=== PATIENT | male | born 1945 | race Caucasian/White ===

== ENCOUNTER → 2016-09-11 | Outpatient (CLI) | payer MEDICARE | LOC: SP 14:10 | PROVIDERS: ATTEND Nurse Practitioner Family | DX: Z86.73 Personal history of transient ischemic attack (TIA), and cerebral infarction without residual deficits (principal) | CPT/HCPCS: 93880 ==

== ENCOUNTER 2019-09-30 16:42 | Emergency (ER) | payer MEDICARE ==
--- NOTE | 2019-09-30 16:59 | ER Document Report ---
ED General - General Chief Complaint: Bloody Stools Stated Complaint: BLOODY STOOLS Time Seen by Provider: 09/30/19 16:49 Primary Care Provider: RICK NICK NP [ALLIED HEALTH PROFESSIONAL] - Follow up as needed Notes: 73-year-old male presents with bright red blood per rectum and lightheadedness for about an hour. Heart rate 130 for EMS. Patient is not very well-informed about his history but does state he is had this happen before but is never had an endoscopy. He is seen primarily at [facility]. He denies blood thinner use but has a history of a TIA. No belly pain no chest pain or shortness of esdras ath. TRAVEL OUTSIDE OF THE [place] IN LAST 30 DAYS: No - Related Data Allergies/Adverse Reactions: No Known Allergies Allergy (Unverified 09/30/19 17:00) Past Medical History - Social History Smoking Status: Former Smoker Family History: None Review of Systems - Review of Systems Notes: REVIEW OF SYSTEMS GEN: Denies fever, chills, weight loss ENT: Denies sore throat, nasal discharge, ear pain EYES: Denies blurry vision, eye pain, discharge CV: Denies chest pain, palpitations, edema RESP: Denies cough, shortness of breath, wheezing GI: HPI. MSK: Denies joint pain/swelling, edema, SKIN: Denies rash, skin lesions LYMPH: Denies swollen glands/lymph nodes NEURO: C. Denies headache, focal weakness or numbness, dizziness PSYCH: Denies depression, suicidal or homicidal ideation PHYSICAL EXAMINATION General: No acute distress, well-nourished Head: Atraumatic, normocephalic ENT: Mouth normal, oropharynx moist, no exudates or tonsillar enlargement Eyes: Conjunctiva normal, pupils equal, lids normal Neck: No JVD, supple, no guarding CVS: Normal rate, regular rhythm, no murmurs Resp: No resp distress, equal and normal breath sounds bilaterally GI: WMaroon nd blood with clots present in the patient's underwear Back: No CVA or midline TTP Skin: No rash, warm Lymphatic: No lymphadeopathy noted Neuro: Awake, alert. Face symmetric. GCS 15. Physical Exam - Vital signs Vitals: Temp 97.5 F 09/30/19 16:51 Course - Re-evaluation Re-evalutation: 09/30/19 16:58 GI bleed with tachycardia, no hypotension at this time altered mental status, but will watch carefully. Likely lower GI bleed with maroon stool but will keep an eye out for brisk upper GI bleed. 2 IVs will be placed, he will have type and screen sent CBC, etc. 09/30/19 18:40 Interestingly the patient's hemoglobin is normal but he remains tachycardic. He had one additional maroon stool in the ED. His apparently told the nurse he has been having some abdominal bloating. Given his history of diverticulitis we will do a CT rule out infectious etiology of the tachycardia but he does not have a fever or other sepsis criteria with normal white count. He will be given 1 L of fluid to start. He has a type and cross pending. Contacted [facility] as of 6:40 PM transfer 09/30/19 19:[address] to [address] became diaphoretic and passed a large maroon stool. I put him back in the room canceled his CT scan and started transfusing him blood at approximately 7:10 PM. I have canceled the transfer to [facility] because they have not called me back and will resume transfer with [place] for GI. Now that he is bleeding I am reassured that the tachycardia is not thought from this and that he is likely not septic. 09/30/19 19:34 Discussed with family. In agreement. Accepted by Dr. Cruz at [facility]. Discussed with filing. Trucks on the way. Is getting blood heart rate is 100. - Vital Signs Vital signs: Temp Pulse Resp BP Pulse Ox 97.4 F 105 H 21 H 119/85 95 09/30/19 19:30 09/30/19 19:30 09/30/19 19:30 09/30/19 19:30 09/30/19 19:30 - Laboratory Result Diagrams: 09/30/19 17:10 09/30/19 17:10 Laboratory results interpreted by me: 09/30/19 09/30/19 09/30/19 17:10 17:10 17:10 RDW 14.8 H Plt Count 147 L Potassium 3.4 L Glucose 129 H Calcium 8.3 L Crossmatch See Detail - Diagnostic Test Radiology reviewed: Image reviewed, Reports reviewed Critical Care Note - Critical Care Note Total time excluding time spent on procedures (mins): 35 Comments: The above patient is critically ill. Not including procedures, but including direct re-evaluations, speaking with patient and/or consultants, interpreting results, and documenting, I spent the total amount of minute listed listed above on critical care time Discharge - Discharge Clinical Impression: Lower GI bleeding Condition: Good Disposition: [facility] Referrals: RICK NICK, LAMINATING MACHINE OFFBEARER [ALLIED HEALTH PROFESSIONAL] - Follow up as needed
[2019-09-30 17:42] LABS: ABSOLUTE EOSINOPHILS # (AUTO) 0.1 10^3/uL (0.0-0.6); ABSOLUTE MONOCYTES (AUTO) 0.6 10^3/uL (0.1-1.4); ABSOLUTE NEUT (AUTO) 6.1 10^3/uL (1.7-8.2); BASOPHILS % (AUTO) 0.4 % (0-2); EOSINOPHILS % (AUTO) 1.5 % (0-6); HEMATOCRIT 42.1 % (37.9-51.0); HEMOGLOBIN 14.5 g/dL (13.5-17.0); LYMPHOCYTES % (AUTO) 22.4 % (13-45); MEAN CORPUSCULAR HEMOGLOBIN 31.6 pg (27.0-33.4); MEAN CORPUSCULAR HGB CONC 34.4 g/dL (32.0-36.0); MEAN CORPUSCULAR VOLUME 92 fl (80-97); PLATELET COUNT 147 10^3/uL (150-450); RED BLOOD COUNT 4.58 10^6/uL (4.35-5.55); RED CELL DISTRIBUTION WIDTH 14.8 % (11.5-14.0); SEGMENTED NEUTROPHILS % (AUTO) 68.7 % (42-78); TOTAL CELLS COUNTED % (AUTO) 100 %; WHITE BLOOD COUNT 8.9 10^3/uL (4.0-10.5)
[2019-09-30 17:54] LABS: INTERNATIONAL RATION (INR) 1.01; PROTHROMBIN TIME 13.3 SEC (11.4-15.4)
[2019-09-30] MEDS ORDERED: NORMAL SALINE 1000 ML 1,000 ML IV ONE (17:56)
[2019-09-30 18:02] LABS: ANION GAP 8 (5-19); BLOOD UREA NITROGEN 15 mg/dL (7-20); CALCIUM 8.3 mg/dL (8.4-10.2); CARBON DIOXIDE 27 mmol/L (22-30); CHLORIDE 104 mmol/L (98-107); GLUCOSE 129 mg/dL (75-110); POTASSIUM 3.4 mmol/L (3.6-5.0)
[2019-09-30] MEDS ORDERED: NORMAL SALINE 250 ML IV PRN ×2 (18:52→19:54)
[2019-09-30 19:54] LABS: ABSOLUTE EOSINOPHILS # (AUTO) 0.1 10^3/uL (0.0-0.6); ABSOLUTE LYMPHOCYTES (AUTO) 1.8 10^3/uL (0.5-4.7); ABSOLUTE MONOCYTES (AUTO) 0.8 10^3/uL (0.1-1.4); ABSOLUTE NEUT (AUTO) 8.6 10^3/uL (1.7-8.2); BASOPHILS % (AUTO) 0.3 % (0-2); EOSINOPHILS % (AUTO) 1.1 % (0-6); HEMATOCRIT 36.2 % (37.9-51.0); HEMOGLOBIN 12.6 g/dL (13.5-17.0); LYMPHOCYTES % (AUTO) 16.3 % (13-45); MEAN CORPUSCULAR HGB CONC 34.9 g/dL (32.0-36.0); MEAN CORPUSCULAR VOLUME 92 fl (80-97); MONOCYTES % (AUTO) 6.7 % (3-13); PLATELET COUNT 137 10^3/uL (150-450); RED BLOOD COUNT 3.95 10^6/uL (4.35-5.55); RED CELL DISTRIBUTION WIDTH 14.8 % (11.5-14.0); SEGMENTED NEUTROPHILS % (AUTO) 75.6 % (42-78); TOTAL CELLS COUNTED % (AUTO) 100 %; WHITE BLOOD COUNT 11.3 10^3/uL (4.0-10.5)
--- NOTE | 2019-09-30 21:02 | EKG REPORT ---
SEVERITY:- OTHERWISE NORMAL ECG - SINUS TACHYCARDIA : Confirmed by: Arely Restrepo MD 30-Sep-2019 21:00:49
[2019-09-30 21:06] VITALS: BP 129/79
== END 2019-09-30 21:30 | disposition short-term general hospital (02) ==
LOC: ER 16:42
DX: K92.2 Gastrointestinal hemorrhage, unspecified (principal); R19.5 Other fecal abnormalities; R42 Dizziness and giddiness; R00.0 Tachycardia, unspecified; R41.82 Altered mental status, unspecified; Z87.891 Personal history of nicotine dependence
CPT/HCPCS: 93005; 99291; 96360; 86900; 86901; 36415; 36430; 86850; 85025; 85610; 80048; 86920; 93010; P9016; J7030

== ENCOUNTER 2020-04-24 14:23 | Inpatient (IN) | payer MEDICARE ==
[2020-04-24 14:50] LABS: ABSOLUTE LYMPHOCYTES (AUTO) 1.4 10^3/uL (0.5-4.7); ABSOLUTE MONOCYTES (AUTO) 0.5 10^3/uL (0.1-1.4); ABSOLUTE NEUT (AUTO) 6.7 10^3/uL (1.7-8.2); BASOPHILS % (AUTO) 0.3 % (0-2); EOSINOPHILS % (AUTO) 0.3 % (0-6); HEMOGLOBIN 15.1 g/dL (13.5-17.0); LYMPHOCYTES % (AUTO) 15.9 % (13-45); MEAN CORPUSCULAR HEMOGLOBIN 30.6 pg (27.0-33.4); MEAN CORPUSCULAR HGB CONC 34.3 g/dL (32.0-36.0); MEAN CORPUSCULAR VOLUME 89 fl (80-97); MONOCYTES % (AUTO) 6.2 % (3-13); PLATELET COUNT 141 10^3/uL (150-450); RED BLOOD COUNT 4.94 10^6/uL (4.35-5.55); RED CELL DISTRIBUTION WIDTH 15.6 % (11.5-14.0); SEGMENTED NEUTROPHILS % (AUTO) 77.3 % (42-78); TOTAL CELLS COUNTED % (AUTO) 100 %; WHITE BLOOD COUNT 8.6 10^3/uL (4.0-10.5)
[2020-04-24 15:10] LABS: ALBUMIN 3.4 g/dL (3.5-5.0); ALKALINE PHOSPHATASE 87 U/L (38-126); ANION GAP 9 (5-19); ASPARTATE AMINO TRANSFERASE 81 U/L (17-59); BILIRUBIN,DIRECT 0.6 mg/dL (0.0-0.4); BILIRUBIN,TOTAL 2.3 mg/dL (0.2-1.3); BLOOD UREA NITROGEN 41 mg/dL (7-20); CALCIUM 8.8 mg/dL (8.4-10.2); CARBON DIOXIDE 29 mmol/L (22-30); CHLORIDE 102 mmol/L (98-107); GLUCOSE 120 mg/dL (75-110); POTASSIUM 3.9 mmol/L (3.6-5.0); TOTAL PROTEIN 6.3 g/dL (6.3-8.2)
--- NOTE | 2020-04-24 15:10 | RADIOLOGY REPORT (SQ) ---
EXAM DESCRIPTION: CHEST SINGLE VIEW IMAGES COMPLETED DATE/TIME: 04/24/2020 3:01 pm REASON FOR STUDY: DIFFICULTY BREATHING COMPARISON: 2009 EXAM PARAMETERS: NUMBER OF VIEWS: One view. TECHNIQUE: Single frontal radiographic view of the chest acquired. RADIATION DOSE: NA LIMITATIONS: None. FINDINGS: LUNGS AND PLEURA: There appear to be extensive peripheral ground-glass infiltrates bilater ally. MEDIASTINUM AND HILAR STRUCTURES: No masses. Contour normal. HEART AND VASCULAR STRUCTURES: Heart normal in size. Normal vasculature. BONES: No acute findings. HARDWARE: None in the chest. OTHER: No other significant finding. IMPRESSION: Extensive ground-glass infiltrates bilaterally. May suggest an atypical infectious/ inf lammatory process such as COVID-19 pneumonia. TECHNICAL DOCUMENTATION: JOB ID: [id number] 2010 [employer]- All Rights Reserved Reading location - IP/workstation name: [email or web address]
[2020-04-24] MEDS ORDERED: METHYLPREDNISOLONE INJ 125 MG/2 ML SDV IV ONE (17:06)
--- NOTE | 2020-04-24 17:25 | ER Document Report ---
ED General - General Chief Complaint: Shortness Of Breath Stated Complaint: DIFFICULTY BREATHING Time Seen by Provider: 04/24/20 15:46 Mode of Arrival: Medic Information source: Patient, Emergency Med Personnel TRAVEL OUTSIDE OF THE U.S. IN LAST 30 DAYS: No - HPI Notes: Patient is brought in by ambulance for shortness of breath. Patient has a history of a positive Covid test on April 18, 2020. He states for approximately 8 to 10 days he has had decreased taste and smell. He has had cough and shortness of breath. With some generalized malaise as well. Patient states he does have a history of COPD. He denies being on home oxygen but states he does use CPAP occasionally. He denies any pain. His shortness of breath has been constant and moderate to severe. It is worse with exertion and better with rest. EMS states that they found the patient with a pulse ox of 60% on room air. - Related Data Allergies/Adverse Reactions: No Known Allergies Allergy (Verified 04/24/20 14:37) Past Medical History - General Information source: Patient - Social History Smoking Status: Former Smoker Frequency of alcohol use: None Drug Abuse: None Family History: None Patient has homicidal ideation: No - Past Medical History Cardiac Medical History: Reports: Hx Hypercholesterolemia, Hx Hypertension Review of Systems - Review of Systems Constitutional: Malaise, Weakness Cardiovascular: denies: Chest pain, Palpitations Respiratory: Cough, Short of breath -: Yes All other systems reviewed and negative Physical Exam - Vital signs Vitals: Pulse Ox 91 L 04/24/20 14:26 Interpretation: Tachycardic, Hypoxic - General General appearance: Alert - HEENT Head: Normocephalic, Atraumatic Eyes: Normal Pupils: PERRL - Respiratory Respiratory status: Respiratory distress - Mild, Tachypnea Chest status: Nontender Breath sounds: Decreased air movement, Rhonchi Chest palpation: Normal - Cardiovascular Rhythm: Tachycardia Heart sounds: Normal auscultation Murmur: No - Abdominal Inspection: Normal Distension: No distension Bowel sounds: Normal Tenderness: Nontender Organomegaly: No organomegaly - Back Back: Normal, Nontender - Extremities General upper extremity: Normal inspection, Nontender, Normal color, Normal ROM, Normal temperature General lower extremity: Normal inspection, Nontender, Normal color, Normal ROM, Normal temperature, Normal weight bearing. No: Kath's sign - Neurological Neuro grossly intact: Yes Cognition: Normal Orientation: AAOx4 [place] Coma Scale Eye Opening: Spontaneous [place] Coma Scale Verbal: Oriented [place] Coma Scale Motor: Obeys Commands [place] Coma Scale Total: 15 Speech: Normal Motor strength normal: LUE, RUE, LLE, RLE Sensory: Normal - Psychological Associated symptoms: Normal affect, Normal mood - Skin Skin Temperature: Warm Skin Moisture: Dry Skin Color: Normal Course - Re-evaluation Re-evalutation: 04/24/20 17:23 Patient presents with a known history of being positive for Covid approximate 6 days ago. His chest x-ray shows bilateral infiltrates consistent with a Covid pneumonia. Patient is hypoxic on room air and is not currently on home oxygen. On 6 L she was still approximate 89 to 90%. At this time he will be changed to high flow nasal cannula. Patient otherwise has been stable. - Vital Signs Vital signs: Temp Pulse Resp BP Pulse Ox 35 H 141/81 H 94 04/24/20 15:01 04/24/20 15:00 04/24/20 15:01 - Laboratory Results Result Diagrams: 04/24/20 14:24 04/24/20 14:24 Laboratory Results Interpreted: 04/24/20 04/24/20 04/24/20 14:24 14:24 14:24 RDW 15.6 H Plt Count 141 L Fibrinogen 515 H BUN 41 H Creatinine 1.38 H Est GFR (MDRD) Non-Af 51 L Glucose 120 H Total Bilirubin 2.3 H Direct Bilirubin 0.6 H AST 81 H Albumin 3.4 L Critical Laboratory Results Reviewed: Yes Attending or Supervising Physician who Reviewed Labs: ROYAL BHAGAT - Radiology Results Critical Radiology Results Reviewed: Yes Attending or Supervising Physician who Reviewed Radiology: ROYAL BHAGAT - EKG Interpretation by [facility] EKG shows normal: Sinus rhythm Rate: Tachycardia - 115 Rhythm: NSR [place]/QRS: Left axis deviation. No: Right axis deviation Critical Care Note - Critical Care Note Total time excluding time spent on procedures (mins): 50 Comments: Approximate 50 minutes of critical care time were spent on this hypoxic patient with Covid pneumonia. This was spent doing multiple reassessments. It was spent talking with information systems consultant. It was spent reviewing imaging and laboratory values. Discharge - Discharge Clinical Impression: Pneumonia due to COVID-19 virus, Hypoxia Condition: Critical Disposition: ADMITTED INPATIENT Admitting Provider: Kristen (Hospitalist) Unit Admitted: [facility]
[2020-04-24] MEDS ORDERED: ALBUTEROL SULFATE HFA (90 MCG/PUFF) 8 GM MDI IH PRN (17:47)
[2020-04-24] MEDS ORDERED: ACETAMINOPHEN 325 MG TABLET PO PRN (17:51)
[2020-04-24] MEDS ORDERED: ONDANSETRON HCL INJ/PF 4 MG/2 ML SDV IV PRN (17:51)
--- NOTE | 2020-04-24 18:09 | PDOC H&P ---
History of Present Illness Admission Date/PCP: 04/24/20 17:30 History of Present Illness: RUFINA QUICK is a 74 year old male with a history of coronary artery disease, COPD, pulmonary fibrosis, and hypertension who presents with shortness of breath. He has been sick now for close to 2 weeks. He said he started getting a feeling of general malaise and fatigue and a little bit of a cough which went on for several days, so he went to his primary care provider's office in [place] and got tested. His test was positive. His doctor called him back and told him that his test was positive and called in some prednisone to his pharmacy. He has been on that for 5 or 6 days now. He has gotten progressively worse and his called EMS. When they got to him, they said that his SPO2 on room air was in the 60s. They put him on oxygen, gave him some IV fluids, and an albuterol nebulizer treatment. In the ER they put him on a heated high flow nasal cannula, currently at 50 L of flow and 100% FiO2. Saturations currently in the mid 90s. He was tachypneic. He had patchy opacities on chest imaging. He says he has not run a fever with any of this. His cough has not been pro ductive. Past Medical History Cardiac Medical History: Reports: Hyperlipidema, Hypertension Social History Smoking Status: Former Smoker Family History Family History: None Parental Family History Reviewed: No - None known Children Family History Reviewed: No - None known Sibling(s) Family History Reviewed.: No - None known Medication/Allergy Home Medications: Amitriptyline HCl [Elavil 25 mg Tablet] 25 mg PO QHS 09/30/19 Aspirin [Ecotrin] 1 tab PO DAILY 09/30/19 Atenolol [Tenormin 50 mg Tablet] 50 mg PO DAILY 09/30/19 Atorvastatin Calcium [Lipitor] 80 mg PO QPM 09/30/19 Benzonatate [Tessalon Perles 100 mg Capsule] 100 mg PO QID 09/30/19 Isosorbide Mononitrate [Imdur 30 mg Tablet.er] 30 mg PO DAILY 09/30/19 Losartan Potassium [Cozaar 25 mg Tablet] 25 mg PO DAILY 09/30/19 Montelukast Sodium 10 mg PO QHS 09/30/19 Omeprazole 20 mg PO DAILY 09/30/19 Prednisone 1 tab PO ASDIR 09/30/19 Tamsulosin HCl [Flomax 0.4 mg Cap.sr] 0.4 mg PO DAILY 09/30/19 Allergies/Adverse Reactions: No Known Allergies Allergy (Verified 04/24/20 14:37) Review of Systems All systems: reviewed and no additional remarkable complaints except as stated - All systems were reviewed and were negative except as noted in the HPI Physical Exam Vital Signs: Temp Pulse Resp BP Pulse Ox 98.7 F 36 H 140/79 H 98 04/24/20 17:01 04/24/20 17:30 04/24/20 17:00 04/24/20 17:30 Intake & Output 04/23/20 04/24/20 04/25/20 06:59 06:59 06:59 Weight 80 kg Results Laboratory Results: 04/24/20 14:24 04/24/20 14:24 04/24/20 04/24/20 14:24 14:24 WBC 8.6 RBC 4.94 Hgb 15.1 Hct 44.0 MCV 89 MCH 30.6 MCHC 34.3 RDW 15.6 H Plt Count 141 L Seg Neutrophils % 77.3 Sodium 140.4 Potassium 3.9 Chloride 102 Carbon Dioxide 29 Anion Gap 9 BUN 41 H Creatinine 1.38 H Est GFR ( Amer) > 60 Glucose 120 H Calcium 8.8 Total Bilirubin 2.3 H AST 81 H Alkaline Phosphatase 87 Total Protein 6.3 Albumin 3.4 L Impressions: Chest X-Ray 04/24/20 14:26 IMPRESSION: Extensive ground-glass infiltrates bilaterally. May suggest an atypical infectious/ inflammatory process such as COVID-19 pneumonia. Assessment and Plan - Diagnosis (1) Pneumonia due to COVID-19 virus Is this a current diagnosis for this admission?: Yes (2) Acute hypoxemic respiratory failure Is this a current diagnosis for this admission?: Yes (3) COPD (chronic obstructive pulmonary disease) Qualifiers: COPD type: chronic bronchitis Chronic bronchitis type: mixed simple and mucopurulent Qualified Code(s): J41.8 - Mixed simple and mucopurulent chronic bronchitis Is this a current diagnosis for this admission?: Yes (4) Pulmonary fibrosis Is this a current diagnosis for this admission?: Yes (5) Coronary artery disease Qualifiers: Coronary Disease-Associated Artery/Lesion type: [place] artery [place] vs. transplanted heart: [place] heart Associated angina: without angina Qualified Code(s): I25.10 - Atherosclerotic heart disease of [place] coronary artery without angina pectoris Is this a current diagnosis for this admission?: Yes (6) Hypertension Qualifiers: Hypertension type: essential hypertension Qualified Code(s): I10 - Essential (primary) hypertension Is this a current diagnosis for this admission?: Yes (7) BPH (benign prostatic hyperplasia) Qualifiers: Lower urinary tract symptom presence: symptoms absent Qualified Code(s): N40.0 - Benign prostatic hyperplasia without lower urinary tract symptoms Is this a current diagnosis for this admission?: Yes - Plan Summary Summary: Were going to give him some IV Solu-Medrol, p.o. ivermectin, melatonin, zinc, IV doxycycline, B vitamin complex, vitamin C, and vitamin D3. Continue supplemental O2 on heated high flow nasal cannula, will titrate delivery method as needed to maintain SPO2 90 to 94%. D-dimer is pending, if it is greater than 1 we will start therapeutic anticoagulation with Lovenox. In the meantime, we will put him on 60 mg of subcutaneous Lovenox for prophylaxis. His ferritin and CRP are pending. We will follow the trend in these inflammatory markers to help us gauge his progress, also along with his clinical status. We will continue most of his home blood pressure medications. We will continue his statin. IV Pepcid for GI prophylaxis. - Time Time Spent with patient: 35 or more minutes Anticipated Discharge Disposition: Unknown Anticipated Discharge Timeframe: Unknown - Inpatient Certification Based on my medical assessment, after consideration of the patient's comorbidities, presenting symptoms, or acuity I expect that the services needed warrant INPATIENT care.: Yes I certify that my determination is in accordance with my understanding of Medicare's requirements for reasonable and necessary INPATIENT services [42 CFR 412.3e].: Yes Medical Necessity: Failure to Improve With Outpatient Therapy, Significant Comorbidiites Make Outpatient Treatment Too Risky, Need Close Monitoring Due to Risk of Patient Decompensation, Need For IV Fluids, Need For Continuous Telemetry Monitoring, Need for Nebulizer Therapy and Monitoring of Response, Need for IV Antibiotics, Risk of Complication if Not Cared For in Hospital
[2020-04-24] MEDS: VITAMIN B COMPLEX TABLET PO SCH (18:12)
[2020-04-24] MEDS: ASCORBIC ACID 500 MG TABLET PO SCH ×2 (18:12→23:41)
[2020-04-24] MEDS: ZINC SULFATE 220 MG CAPSULE PO SCH (18:13)
[2020-04-24] MEDS: CHOLECALCIFEROL (D3) 1,000 UNIT (25 MCG) TABLET PO SCH (18:13)
[2020-04-24] MEDS ORDERED: ENOXAPARIN SODIUM INJ 60 MG/0.6 ML DISP.SYRIN SUBCUT SCH (18:30)
[2020-04-24] MEDS ORDERED: IVERMECTIN 3 MG TABLET PO ONE (19:00)
--- NOTE | 2020-04-24 19:13 | EKG REPORT ---
SEVERITY:- OTHERWISE NORMAL ECG - SINUS TACHYCARDIA : Confirmed by: Arely Restrepo MD 24-Apr-2020 19:13:15
[2020-04-24] MEDS ORDERED: DOXYCYCLINE HYCLATE INJ 100 MG VIAL ONE (22:35)
[2020-04-24] MEDS: MELATONIN 5 MG TABLET PO SCH (22:50)
[2020-04-24] MEDS: ENOXAPARIN SODIUM INJ 60 MG/0.6 ML DISP.SYRIN SUBCUT SCH (22:50)
[2020-04-24 22:54] LABS: APPEARANCE,URINE SLIGHTLY-CLOUDY; BILIRUBIN,URINE NEGATIVE (NEGATIVE); COLOR,URINE AMBER; GLUCOSE, URINE 50 mg/dL (NEGATIVE); KETONES,URINE TRACE mg/dL (NEGATIVE); LEUKOCYTE ESTERASE,URINE TRACE (NEGATIVE); NITRITE,URINE NEGATIVE (NEGATIVE); PROTEIN,URINE 100 mg/dL (NEGATIVE); URINE SPECIFIC GRAVITY 1.026
[2020-04-24] MEDS: METHYLPREDNISOLONE INJ 40 MG/1 ML SDV IV SCH (23:11)
[2020-04-24] MEDS: FAMOTIDINE INJ/PF 20 MG/2 ML SDV IV SCH (23:11)
[2020-04-24] MEDS: RINGERS SOLUTION,LACTATED 1,000 ML IV PRN (23:13)
[2020-04-24] MEDS: DOXYCYCLINE HYCLATE 100 MG in DEXTROSE 5%-WATER 250 ML IV SCH (23:16)
[2020-04-25] MEDS: ASCORBIC ACID 500 MG TABLET PO SCH ×3 (05:35→17:24)
[2020-04-25 05:54] LABS: ABSOLUTE LYMPHOCYTES (AUTO) 0.3 10^3/uL (0.5-4.7); ABSOLUTE MONOCYTES (AUTO) 0.3 10^3/uL (0.1-1.4); ABSOLUTE NEUT (AUTO) 4.1 10^3/uL (1.7-8.2); LYMPHOCYTES % (AUTO) 6.4 % (13-45); MEAN CORPUSCULAR HEMOGLOBIN 30.1 pg (27.0-33.4); MEAN CORPUSCULAR HGB CONC 34.2 g/dL (32.0-36.0); MEAN CORPUSCULAR VOLUME 88 fl (80-97); MONOCYTES % (AUTO) 7.2 % (3-13); PLATELET COUNT 120 10^3/uL (150-450); RED BLOOD COUNT 4.66 10^6/uL (4.35-5.55); RED CELL DISTRIBUTION WIDTH 15.6 % (11.5-14.0); SEGMENTED NEUTROPHILS % (AUTO) 86.4 % (42-78); TOTAL CELLS COUNTED % (AUTO) 100 %; WHITE BLOOD COUNT 4.7 10^3/uL (4.0-10.5)
[2020-04-25 06:24] LABS: ALKALINE PHOSPHATASE 77 U/L (38-126); ANION GAP 8 (5-19); ASPARTATE AMINO TRANSFERASE 68 U/L (17-59); BILIRUBIN,DIRECT 0.7 mg/dL (0.0-0.4); BILIRUBIN,TOTAL 1.7 mg/dL (0.2-1.3); BLOOD UREA NITROGEN 37 mg/dL (7-20); CALCIUM 8.6 mg/dL (8.4-10.2); CARBON DIOXIDE 26 mmol/L (22-30); CHLORIDE 105 mmol/L (98-107); GLUCOSE 167 mg/dL (75-110); POTASSIUM 3.9 mmol/L (3.6-5.0); TOTAL PROTEIN 5.7 g/dL (6.3-8.2)
[2020-04-25 07:55] LABS: C-REACTIVE PROTEIN 155.2 mg/L (<10.0)
[2020-04-25] MEDS ORDERED: INFLUENZA QUAD (6MOS+) 2020-21 VAC 0.5 ML SYR IM ONE (08:00)
[2020-04-25] MEDS: VITAMIN B COMPLEX TABLET PO SCH (11:00)
[2020-04-25] MEDS: DOXYCYCLINE HYCLATE 100 MG in DEXTROSE 5%-WATER 250 ML IV SCH ×2 (11:00→21:59)
[2020-04-25] MEDS: ZINC SULFATE 220 MG CAPSULE PO SCH (11:00)
[2020-04-25] MEDS: METHYLPREDNISOLONE INJ 40 MG/1 ML SDV IV SCH ×2 (11:00→21:58)
[2020-04-25] MEDS: CHOLECALCIFEROL (D3) 1,000 UNIT (25 MCG) TABLET PO SCH (11:00)
[2020-04-25] MEDS: FAMOTIDINE INJ/PF 20 MG/2 ML SDV IV SCH ×2 (11:00→21:58)
[2020-04-25] MEDS: ENOXAPARIN SODIUM INJ 60 MG/0.6 ML DISP.SYRIN SUBCUT SCH (11:01)
[2020-04-25 13:43] LABS: ARTERIAL BLOOD FIO2 35%; ARTERIAL BLOOD H2CO3 1.02 mmol/L (1.05-1.35); ARTERIAL BLOOD HCO3 19.3 mmol/L (20-24); ARTERIAL BLOOD O2 SATURATION 83.2 % (94-98); ARTERIAL BLOOD PH 7.37 (7.35-7.45); ARTERIAL BLOOD PO2 48.1 mmHg (80-100); ARTERIAL BLOOD TOTAL CO2 20.3 mmol/L (23-27)
[2020-04-25] MEDS: RINGERS SOLUTION,LACTATED 1,000 ML IV PRN (16:55)
--- NOTE | 2020-04-25 17:21 | PDOC PROGRESS REPORT ---
Subjective Date:: 04/25/20 Subjective:: No adverse events overnight. He was down to 35 L/min on the high flow nasal can nula at 80% FiO2, which was an improvement from admission. His markers of inflammation have improved. However, he had an episode earlier today where he was struggling to breathe and his saturations dropped and so a rapid response was called. They put him on a nonrebreather and his oxygen saturations were around 80%. We were able to quickly put him on CPAP at 14 mmHg with 100% FiO2 and his saturations rapidly came up into the upper 90s. We were able to get him down to 65% and his saturations at that point were about 93 to 94%. He was much more comfortable afterwards. Weight he had also slouched down into the bed and so we set him up in the bed little bit more and he was breathing more comfortably. Reason For Visit: ACUTE HYPOXIC RESPIRATORY FAILURE, COVID-19 Physical Exam Vital Signs: Temp Pulse Resp BP Pulse Ox 97.6 F 112 H 44 H 131/70 H 94 04/25/20 08:49 04/25/20 14:00 04/25/20 14:25 04/25/20 03:24 04/25/20 14:25 Intake & Output 04/24/20 04/25/20 04/26/20 06:59 06:59 06:59 Intake Total 370 1250 Output Total 475 Balance -105 1250 Weight 74.6 kg General appearance: PRESENT: cooperative, disheveled, mild distress Respiratory exam: PRESENT: crackles - Bilateral, symmetrical, tachypnea, u nlabored. ABSENT: accessory muscle use, chest wall tenderness, prolonged expiratory phas, rhonchi, wheezes Cardiovascular exam: PRESENT: RRR, +S1, +S2 Pulses: PRESENT: normal carotid pulses Vascular exam: PRESENT: normal capillary refill GI/Abdominal exam: PRESENT: normal bowel sounds, soft. ABSENT: distended, guarding, rebound, tenderness Results Laboratory Results: 04/25/20 05:06 04/25/20 05:06 04/24/20 04/24/20 04/25/20 14:24 20:30 05:06 WBC 4.7 RBC 4.66 Hgb 14.0 Hct 41.0 MCV 88 MCH 30.1 MCHC 34.2 RDW 15.6 H Plt Count 120 L Seg Neutrophils % 86.4 H Carbonic Acid HCO3/H2CO3 Ratio ABG pH ABG pCO2 ABG pO2 ABG HCO3 ABG O2 Saturation ABG Base Excess FiO2 Sodium Potassium Chloride Carbon Dioxide Anion Gap BUN Creatinine Est GFR ( Amer) Glucose Calcium Magnesium Ferritin 1390.00 H Total Bilirubin AST Alkaline Phosphatase C-Reactive Protein 168.0 H Total Protein Albumin Urine Color MORRIS Urine Appearance SLIGHTLY-CLOUDY Urine pH 5.0 Ur Specific [place] 1.026 Urine Protein 100 H Urine Glucose (UA) 50 H Urine Ketones TRACE H Urine Blood SMALL H Urine Nitrite NEGATIVE Ur Leukocyte Esterase TRACE H Urine WBC (Auto) 8 Urine RBC (Auto) 2 04/25/20 04/25/20 04/25/20 05:06 05:06 12:25 WBC RBC Hgb Hct MCV MCH MCHC RDW Plt Count Seg Neutrophils % Carbonic Acid 1.02 L HCO3/H2CO3 Ratio 18:1 ABG pH 7.37 ABG pCO2 34.0 L ABG pO2 48.1 L ABG HCO3 19.3 L ABG O2 Saturation 83.2 L ABG Base Excess -5.0 FiO2 35% Sodium 139.0 Potassium 3.9 Chloride 105 Carbon Dioxide 26 Anion Gap 8 BUN 37 H Creatinine 1.01 Est GFR ( Amer) > 60 Glucose 167 H Calcium 8.6 Magnesium 2.3 Ferritin 1160.00 H Total Bilirubin 1.7 H AST 68 H Alkaline Phosphatase 77 C-Reactive Protein 155.2 H Total Protein 5.7 L Albumin 3.0 L Urine Color Urine Appearance Urine pH Ur Specific [place] Urine Protein Urine Glucose (UA) Urine Ketones Urine Blood Urine Nitrite Ur Leukocyte Esterase Urine WBC (Auto) Urine RBC (Auto) Impressions: Chest X-Ray 04/24/20 14:26 IMPRESSION: Extensive ground-glass infiltrates bilaterally. May suggest an atypical infectious/ inflammatory process such as COVID-19 pneumonia. Assessment and Plan - Diagnosis (1) Pneumonia due to COVID-19 virus Is this a current diagnosis for this admission?: Yes (2) Acute hypoxemic respiratory failure Is this a current diagnosis for this admission?: Yes (3) COPD (chronic obstructive pulmonary disease) Qualifiers: COPD type: chronic bronchitis Chronic bronchitis type: mixed simple and mucopurulent Qualified Code(s): J41.8 - Mixed simple and mucopurulent chronic bronchitis Is this a current diagnosis for this admission?: Yes (4) Pulmonary fibrosis Is this a current diagnosis for this admission?: Yes (5) Coronary artery disease Qualifiers: Coronary Disease-Associated Artery/Lesion type: [place] artery [place] vs. transplanted heart: [place] heart Associated angina: without angina Qualified Code(s): I25.10 - Atherosclerotic heart disease of [place] coronary artery without angina pectoris Is this a current diagnosis for this admission?: Yes (6) Hypertension Qualifiers: Hypertension type: essential hypertension Qualified Code(s): I10 - Essential (primary) hypertension Is this a current diagnosis for this admission?: Yes (7) BPH (benign prostatic hyperplasia) Qualifiers: Lower urinary tract symptom presence: symptoms absent Qualified Code(s): N40.0 - Benign prostatic hyperplasia without lower urinary tract symptoms Is this a current diagnosis for this admission?: Yes - Plan Summary Summary: Continue IV Solu-Medrol, p.o. ivermectin, melatonin, zinc, IV doxycycline, B vitamin complex, vitamin C, and vitamin D3. Had to upgrade him to CPAP today. D-dimer was elevated, now on therapeutic anticoagulation with Lovenox. We will follow the trend in ferritin and CRP to help us gauge his progress, also along with his clinical status. We will continue most of his home blood pressure medications. We will continue his statin. IV Pepcid for GI prophylaxis. - Time Time Spent with patient: 25-34 minutes Anticipated Discharge Disposition: Unknown Anticipated Discharge Timeframe: Unknown
[2020-04-25] MEDS ORDERED: LORAZEPAM INJ 2 MG/1 ML VIAL IV PRN (21:11)
[2020-04-25] MEDS ORDERED: MORPHINE SULFATE 10 MG/ML INJ IV ONE (21:30)
[2020-04-25] MEDS: MELATONIN 5 MG TABLET PO SCH (21:58)
[2020-04-26] MEDS ORDERED: LORAZEPAM INJ 2 MG/1 ML VIAL IV PRN ×2 (00:13→00:30)
[2020-04-26] MEDS: ASCORBIC ACID 500 MG TABLET PO SCH ×2 (00:56→06:19)
[2020-04-26] MEDS ORDERED: MORPHINE SULFATE 10 MG/ML INJ IV ONE (04:44)
[2020-04-26] MEDS ORDERED: MORPHINE SULFATE 10 MG/ML INJ ONE (04:44)
[2020-04-26] MEDS ORDERED: LORAZEPAM INJ 2 MG/1 ML VIAL IV ONE (04:52)
[2020-04-26] MEDS ORDERED: METOPROLOL TARTRATE PF/INJ 5 MG/5 ML SDV IV ONE ×2 (04:53)
--- NOTE | 2020-04-26 05:27 | Progress Note ---
Provider Note Provider Note: Mr. Delgado is a 74-year-old male admitted for acute hypoxic respiratory failure due to COVID-19 pneumonia Patient had an episode of desaturation to the lower 80s while he was on CPAP with 100% FiO2. His nurse callled rapid response. During my evaluation patient was very anxious, agitated, hungry for air with his oxygen saturation around 84% while he was on CPAP with a setting of 100% FiO2 and CPAP pressure of 14. Pulse rate was in the 180s and it was irregular on residential monitor. Blood pressure was in the 190s/70s. Respiratory rate was in the 40s and was afebrile. It was difficult to examine patient because of continued movement and agitation but breathing sound appeared decreased bilaterally. EKG, chest x-ray were ordered. CPAP pressure was increased to 16. Patient was given Ativan and morphine. Metoprolol 5 mg IV push was also given. Subsequently patient calm down, his saturation improved slowly to lower 90s. EKG was done after a push of metoprolol showed sinus tachycardia with his heart rate improving to lower 100s. Patient's blood pressure stayed stable throughout. His oxygenation improved and he was placed back on his previous settings and rapid response was over. Patient currently appears stable for continued management on acute medical floor. Follow-up with chest x-ray
[2020-04-26 06:06] LABS: HEMATOCRIT 42.2 % (37.9-51.0); HEMOGLOBIN 14.6 g/dL (13.5-17.0); MEAN CORPUSCULAR HEMOGLOBIN 30.5 pg (27.0-33.4); MEAN CORPUSCULAR HGB CONC 34.6 g/dL (32.0-36.0); MEAN CORPUSCULAR VOLUME 88 fl (80-97); PLATELET COUNT 137 10^3/uL (150-450); RED BLOOD COUNT 4.79 10^6/uL (4.35-5.55); RED CELL DISTRIBUTION WIDTH 15.6 % (11.5-14.0)
[2020-04-26 06:11] LABS: WHITE BLOOD COUNT 13.1 10^3/uL (4.0-10.5)
[2020-04-26 06:25] LABS: ALBUMIN 2.8 g/dL (3.5-5.0); ALKALINE PHOSPHATASE 113 U/L (38-126); ANION GAP 7 (5-19); ASPARTATE AMINO TRANSFERASE 85 U/L (17-59); BILIRUBIN,DIRECT 0.5 mg/dL (0.0-0.4); BILIRUBIN,TOTAL 1.3 mg/dL (0.2-1.3); BLOOD UREA NITROGEN 24 mg/dL (7-20); CALCIUM 8.5 mg/dL (8.4-10.2); CARBON DIOXIDE 27 mmol/L (22-30); CHLORIDE 106 mmol/L (98-107); GLUCOSE 166 mg/dL (75-110); POTASSIUM 3.7 mmol/L (3.6-5.0); TOTAL PROTEIN 5.6 g/dL (6.3-8.2)
[2020-04-26 06:29] LABS: C-REACTIVE PROTEIN 68.4 mg/L (<10.0)
[2020-04-26 07:16] LABS: ABSOLUTE LYMPHOCYTES# (MANUAL) 0.1 10^3/uL (0.5-4.7); ABSOLUTE MONOCYTES # (MANUAL) 0.4 10^3/uL (0.1-1.4); BASOPHILS % (MANUAL) 0 % (0-2); EOSINOPHILS % (MANUAL) 0 % (0-6); LYMPHOCYTES % (MANUAL) 1 % (13-45); MONOCYTES % (MANUAL) 3 % (3-13); SEGMENTED NEUTROPHILS % (MAN) 96 % (42-78); TOTAL CELLS COUNTED 100
[2020-04-26 07:17] LABS: BURR CELLS SLIGHT; PLATELET COMMENT ADEQUATE
--- NOTE | 2020-04-26 07:17 | RADIOLOGY REPORT (SQ) ---
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 NUMBER OF VIEWS/TECHNIQUE: 1/AP FINDINGS: Moderate mixed airspace and interstitial opacities. Normal cardiac silhouette size. No pneumothorax. Stable bony thorax. IMPRESSION: Moderate mixed airspace and interstitial opacities. Interval worsening.
[2020-04-26] MEDS ORDERED: TRAZODONE HCL 50 MG TABLET PO PRN (07:49)
[2020-04-26 08:06] VITALS: BP 135/75
[2020-04-26] MEDS: CHOLECALCIFEROL (D3) 1,000 UNIT (25 MCG) TABLET PO SCH (09:12)
[2020-04-26] MEDS: VITAMIN B COMPLEX TABLET PO SCH (09:12)
[2020-04-26] MEDS: ZINC SULFATE 220 MG CAPSULE PO SCH (09:12)
[2020-04-26] MEDS ORDERED: MORPHINE SULFATE 10 MG/ML INJ IV PRN (09:42)
--- NOTE | 2020-04-26 09:52 | PDOC PROGRESS REPORT ---
Subjective Date:: 04/26/20 Subjective:: 74 year old male with a history of coronary artery disease, COPD, pulmonary fibr osis, and hypertension who presents with shortness of breath. He has been sick now for close to 2 weeks. He said he started getting a feeling of general malaise and fatigue and a little bit of a cough which went on for several days, so he went to his primary care provider's office in [place] and got tested. His test was positive. His doctor called him back and told him that his test was positive and called in some prednisone to his pharmacy. He has been on that for 5 or 6 days now. He has gotten progressively worse and his called EMS. When they got to him, they said that his SPO2 on room air was in the 60s. They put him on oxygen, gave him some IV fluids, and an albuterol nebulizer treatment. In the ER they put him on a heated high flow nasal cannula, currently at 50 L of flow and 100% FiO2. Saturations currently in the mid 90s. He was tachypneic. He had patchy opacities on chest imaging. He says he has not run a fever with any of this. His cough has not been productive. 04/25/2020No adverse events overnight. He was down to 35 L/min on the high flow nasal cannula at 80% FiO2, which was an improvement from admission. His markers of inflammation have improved. However, he had an episode earlier today where he was struggling to breathe and his saturations dropped and so a rapid response was called. They put him on a nonrebreather and his oxygen saturations were around 80%. We were able to quickly put him on CPAP at 14 mmHg with 100% FiO2 and his saturations rapidly came up into the upper 90s. We were able to get him down to 65% and his saturations at that point were about 93 to 94%. He was much more comfortable afterwards. Weight he had also slouched down into the bed and so we set him up in the bed little bit more and he was breathing more com fortably. 04/26/2020-rapid response was called last night because of hypoxia and acute on chronic respiratory failure. At the time of my examination patient is not responding. On cPAP with 100% of oxygen. Discussed the plan of care with patient's Nely she requested for comfort care measures only. orders were placed for comfort care measures only. Reason For Visit: ACUTE HYPOXIC RESPIRATORY FAILURE, COVID-19 Physical Exam Vital Signs: Temp Pulse Resp BP Pulse Ox 97.5 F 79 24 H 135/75 H 100 04/26/20 08:50 04/26/20 07:20 04/26/20 07:20 04/26/20 07:20 04/26/20 07:20 Intake & Output 04/25/20 04/26/20 04/27/20 06:59 06:59 06:59 Intake Total 370 1500 Output Total 475 1125 Balance -105 375 Weight 74.6 kg 74 kg General appearance: PRESENT: other - Patient is in acute distress CPAP. Head exam: PRESENT: atraumatic Eye exam: PRESENT: conjunctiva pale, PERRLA Mouth exam: PRESENT: moist, tongue midline Teeth exam: PRESENT: poor dentation Neck exam: ABSENT: carotid bruit, JVD, lymphadenopathy, thyromegaly Respiratory exam: PRESENT: accessory muscle use, decreased breath sounds, tachypnea, wheezes Cardiovascular exam: PRESENT: RRR. ABSENT: diastolic murmur, rubs, systolic murmur GI/Abdominal exam: PRESENT: normal bowel sounds, soft. ABSENT: distended, guarding, mass, organolmegaly, rebound, tenderness Rectal exam: ABSENT: deferred Extremities exam: PRESENT: full ROM. ABSENT: calf tenderness, clubbing, pedal edema Neurological exam: PRESENT: other - Patient is not responding to verbal commands at the time of my examination. Results Laboratory Results: 04/26/20 05:29 04/26/20 05:29 04/25/20 04/26/20 04/26/20 12:25 05:29 05:29 WBC 13.1 H D RBC 4.79 Hgb 14.6 Hct 42.2 MCV 88 MCH 30.5 MCHC 34.6 RDW 15.6 H Plt Count 137 L Seg Neutrophils % Not Reportable Carbonic Acid 1.02 L HCO3/H2CO3 Ratio 18:1 ABG pH 7.37 ABG pCO2 34.0 L ABG pO2 48.1 L ABG HCO3 19.3 L ABG O2 Saturation 83.2 L ABG Base Excess -5.0 FiO2 35% Sodium 140.0 Potassium 3.7 Chloride 106 Carbon Dioxide 27 Anion Gap 7 BUN 24 H Creatinine 0.77 Est GFR ( Amer) > 60 Glucose 166 H Calcium 8.5 Magnesium 2.1 Ferritin Total Bilirubin 1.3 AST 85 H Alkaline Phosphatase 113 C-Reactive Protein Total Protein 5.6 L Albumin 2.8 L 04/26/20 05:29 WBC RBC Hgb Hct MCV MCH MCHC RDW Plt Count Seg Neutrophils % Carbonic Acid HCO3/H2CO3 Ratio ABG pH ABG pCO2 ABG pO2 ABG HCO3 ABG O2 Saturation ABG Base Excess FiO2 Sodium Potassium Chloride Carbon Dioxide Anion Gap BUN Creatinine Est GFR ( Amer) Glucose Calcium Magnesium Ferritin 1330.00 H Total Bilirubin AST Alkaline Phosphatase C-Reactive Protein 68.4 H Total Protein Albumin Impressions: Chest X-Ray 04/26/20 00:00 IMPRESSION: Moderate mixed airspace and interstitial opacities. Interval worsening. Assessment and Plan - Diagnosis (1) Pneumonia due to COVID-19 virus Is this a current diagnosis for this admission?: Yes Plan: 04/26/2083-43-ufxw-old male admitted with COVID-19 pneumonia. Receiving IV Solu- Medrol, ivermectin, melatonin, zinc, IV doxycycline, multivitamins. Rapid response was called yesterday morning and again last night because of the respiratory distress. At the time of my examination this morning patient is on CPAP. I discussed the plan of care and poor prognosis with the patient's Nely she requested for comfort care measures only. She fully understood what the comfort care measures mean. She does not want him to suffer anymore. Patient CODE STATUS is already DNR/DNI. (2) Acute hypoxemic respiratory failure Is this a current diagnosis for this admission?: Yes Plan: 04/26/2020-patient admitted with acute hypoxic respiratory failure secondary to COVID-19 pneumonia. On CPAP this morning. Overall prognosis poor condition is critical. is requested for comfort care measures only. (3) Pulmonary fibrosis Is this a current diagnosis for this admission?: Yes (4) Coronary artery disease Qualifiers: Coronary Disease-Associated Artery/Lesion type: [place] artery [place] vs. transplanted heart: [place] heart Associated angina: without angina Qualified Code(s): I25.10 - Atherosclerotic heart disease of [place] coronary artery without angina pectoris Is this a current diagnosis for this admission?: Yes (5) Hypertension Qualifiers: Hypertension type: essential hypertension Qualified Code(s): I10 - Essential (primary) hypertension Is this a current diagnosis for this admission?: Yes (6) BPH (benign prostatic hyperplasia) Qualifiers: Lower urinary tract symptom presence: symptoms absent Qualified Code(s): N40.0 - Benign prostatic hyperplasia without lower urinary tract symptoms Is this a current diagnosis for this admission?: Yes (7) Need for comfort care Is this a current diagnosis for this admission?: Yes Plan: 04/26/2020-patient will be on comfort care measures only as per patient's Britt requested to discontinue all the medications and started on IV morphine 4 mg every 2 hours as needed, scopolamine patch, Ativan 2 mg IV every 4 as needed for anxiety. CODE STATUS is DNR/DNI. - Plan Summary Summary: Continue IV Solu-Medrol, p.o. ivermectin, melatonin, zinc, IV doxycycline, B vitamin complex, vitamin C, and vitamin D3. Had to upgrade him to CPAP today. D-dimer was elevated, now on therapeutic anticoagulation with Lovenox. We will follow the trend in ferritin and CRP to help us gauge his progress, also along with his clinical status. We will continue most of his home blood pressure medications. We will continue his statin. IV Pepcid for GI prophylaxis. - Time Anticipated Discharge Disposition: Home with Hospice Anticipated Discharge Timeframe: within 48 hours
[2020-04-26] MEDS ORDERED: TAMSULOSIN HCL 0.4 MG CAP.SR.24H PO SCH (10:00)
[2020-04-26] MEDS ORDERED: ASPIRIN 81 MG TABLET, ENT COATED PO SCH (10:00)
[2020-04-26] MEDS ORDERED: ATENOLOL 50 MG TABLET PO SCH (10:00)
[2020-04-26] MEDS ORDERED: LOSARTAN POTASSIUM 50 MG TABLET PO SCH (10:00)
[2020-04-26] MEDS ORDERED: IVERMECTIN 3 MG TABLET PO ONE (10:00)
[2020-04-26] MEDS ORDERED: ENOXAPARIN SODIUM INJ 80 MG/0.8 ML DISP.SYRIN SUBCUT SCH (10:00)
[2020-04-26] MEDS ORDERED: (PENDING PHARMACY ID) (Omeprazole [Omeprazole] 20 MG Capsule.Dr) PO SCH (10:00)
[2020-04-26] MEDS ORDERED: ISOSORBIDE MONONITRATE 60 MG TAB.ER.24H PO SCH (10:00)
[2020-04-26] MEDS ORDERED: PANTOPRAZOLE SODIUM 20 MG TABLET.DR PO SCH (10:00)
--- NOTE | 2020-04-26 10:46 | EKG REPORT ---
SEVERITY:- BORDERLINE ECG - SINUS TACHYCARDIA BORDERLINE PROLONGED QT INTERVAL : Confirmed by: Arely Restrepo MD 26-Apr-2020 10:45:31
[2020-04-26] MEDS ORDERED: SCOPOLAMINE HYDROBROMIDE 1.5 MG PATCH.TD72 TD SCH (11:00)
[2020-04-26] MEDS: LORAZEPAM INJ 2 MG/1 ML VIAL IV PRN ×2 (11:13→12:42)
[2020-04-26] MEDS: MORPHINE SULFATE 10 MG/ML INJ IV PRN ×2 (11:24→12:42)
--- NOTE | 2020-04-26 13:52 | Death Summary ---
Summary Date : 04/26/20 Time of :: 13:20 Autopsy: No Resuscitation Status: Comfort Measures Only - Final Diagnosis (1) Pneumonia due to COVID-19 virus Is this a current diagnosis for this admission?: Yes (2) Acute hypoxemic respiratory failure Is this a current diagnosis for this admission?: Yes (3) Pulmonary fibrosis Is this a current diagnosis for this admission?: Yes (4) Coronary artery disease Is this a current diagnosis for this admission?: Yes (5) Hypertension Is this a current diagnosis for this admission?: Yes (6) BPH (benign prostatic hyperplasia) Is this a current diagnosis for this admission?: Yes (7) Need for comfort care Is this a current diagnosis for this admission?: Yes Hospital Course:: 74 year old male with a history of coronary artery disease, COPD, pulmonary fibrosis, and hypertension who presents with shortness of breath. He has been sick now for close to 2 weeks. He said he started getting a feeling of general malaise and fatigue and a little bit of a cough which went on for several days, so he went to his primary care provider's office in [place] and got tested. His test was positive. His doctor called him back and told him that his test was positive and called in some prednisone to his pharmacy. He has been on that for 5 or 6 days now. He has gotten progressively worse and his called EMS. When they got to him, they said that his SPO2 on room air was in the 60s. They put him on oxygen, gave him some IV fluids, and an albuterol nebulizer treatment. In the ER they put him on a heated high flow nasal cannula, currently at 50 L of flow and 100% FiO2. Saturations currently in the mid 90s. He was tachypneic. He had patchy opacities on chest imaging. He says he has not run a fever with any of this. His cough has not been productive. 04/25/2020No adverse events overnight. He was down to 35 L/min on the high flow nasal cannula at 80% FiO2, which was an improvement from admission. His markers of inflammation have improved. However, he had an episode earlier today where he was struggling to breathe and his saturations dropped and so a rapid response was called. They put him on a nonrebreather and his oxygen saturations were around 80%. We were able to quickly put him on CPAP at 14 mmHg with 100% FiO2 and his saturations rapidly came up into the upper 90s. We were able to get him down to 65% and his saturations at that point were about 93 to 94%. He was much more comfortable afterwards. Weight he had also slouched down into the bed and so we set him up in the bed little bit more and he was breathing more comfortably. 04/26/2020-rapid response was called last night because of hypoxia and acute on chronic respiratory failure. At the time of my examination patient is not responding. On cPAP with 100% of oxygen. Discussed the plan of care with patient's Nely she requested for comfort care measures only. orders were placed for comfort care measures only. 04/26/2020-patient peacefully at 1320 p.m. today. Family members at bedside. Again patient is on comfort measures only, and family is aware of the poor prognosis and critical condition prior to
[2020-04-26] MEDS ORDERED: ATORVASTATIN CALCIUM 80 MG TABLET PO SCH (22:00)
[2020-04-26] MEDS ORDERED: MONTELUKAST SODIUM 10 MG TABLET PO SCH (22:00)
== END 2020-04-26 14:56 | disposition expired | DRG 177 ==
LOC: ER 14:23 → EH 17:30 → 3W 19:20
PROVIDERS: ADMIT Family Medicine; ATTEND Internal Medicine
PROC: 5A09357 Assistance with Respiratory Ventilation, Less than 24 Consecutive Hours, Continuous Positive Airway Pressure (ICD-10-PCS; principal; 2020-04-25)
DX: U07.1 COVID-19 (principal); J12.89 Other viral pneumonia; J96.01 Acute respiratory failure with hypoxia; J84.10 Pulmonary fibrosis, unspecified; I25.10 Atherosclerotic heart disease of native coronary artery without angina pectoris; I10 Essential (primary) hypertension; N40.0 Benign prostatic hyperplasia without lower urinary tract symptoms; Z51.5 Encounter for palliative care; E78.5 Hyperlipidemia, unspecified; Z66 Do not resuscitate; Z87.891 Personal history of nicotine dependence
CPT/HCPCS: 36415; 71045; 80053; 81001; 82728; 82803; 83615; 83735; 85025; 85379; 85384; 86140; 93005; 93010; 94660; 96374; 99285; J1650; J2060; J2270; J2920; J2930; J3490; J7060; J7120; S0028